=== PATIENT | male | born 1970 | race Caucasian/White ===

== ENCOUNTER 2021-03-15 10:41 | Emergency (ER) | payer OTHER, SELFPAY ==
[2021-03-15 10:42] VITALS: BP 134/74; PULSE 86; RESP 18; TEMP 36.7; O2SAT 98; BMI 19.6
--- NOTE | 2021-03-15 10:58 | PC.NURSE ---
spoke with pt advised him it would be awhile , he states bugs have layed eggs and are coming out his jawbone.
[2021-03-15 13:00] VITALS: BP 122/66; PULSE 72; RESP 20; TEMP 36.7; O2SAT 98
--- NOTE | 2021-03-15 13:01 | HMH.EDGENADL ---
ED Disposition Clinical Impression: Formication, Rash Disposition: Home, Self-Care Condition on Discharge: Good Instructions: Animal Bites Additional Instructions: Please follow up with your primary care physician outpatient for further management in 2-3 days. 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 Please use over the counter benadryl for itching and comfort. Please return to ED for any concerning symptoms such as difficulty breathing, white purulent drainage from rash, chest pain, difficulty breathing, fevers or any other concerning symptoms. Referrals: Provider,Referral, [Primary Care Provider] - Time of Disposition: 11:45 - Critical Care Critical Care Time: No Attestation: On 03/15/21, the high probability of a clinically significant, sudden or life threatening deterioration of the following system(s) required my full and direct attention, intervention and personal management. The time I documented below is in addition to time spent performing reported procedures but includes the following listed in this critical care notation. Medical Decision Making - Medical Records Medical records reviewed: Yes: I reviewed the patient's medical records. - Dimitris Inquiry Pt receiving controlled substance: No Dimitris was queried for this patient: No Risks and benefits of using a controlled substance: were discussed with pt by me Vital Signs: 03/15/21 10:42 03/15/21 13:00 Temperature 98.1 F 98.1 F Temperature Source Oral Pulse Rate 72 Pulse Rate [Left Radial] 86 Respiratory Rate 18 20 Blood Pressure 122/66 Blood Pressure [Right Arm] 134/74 Blood Pressure Mean [Right Arm] 94 Blood Pressure Source [Right Arm] Automatic Cuff Blood Pressure Position [Right Arm] Sitting 02 Sat by Pulse Oximetry 98 Oxygen Delivery Method Room Air Room Air - Lab Data Lab results reviewed: Yes: I reviewed the patient's lab results. Medical Decision Narrative: Mr. Fitzgerald is a 50-year-old male with a past medical history for polysubstance abuse who presents to the emergency department with a chief complaint of insects crawling all over his body. Patient is afebrile and hemodynamically stable on arrival. Physical exam remarkable for an anxious appearing male with abrasions all over the skin where he continues to pick at these lesions. No obvious signs of infections lesions appear chronic. Differentials to consider but not limited to include bug bites, other insect bites, formication. Patient has been seen by multiple other physicians for this chronic issue including a cement production plant operator and to primary care physicians. Wounds are investigated no obvious signs of parasites or insects are noted despite patient reporting that there are parasites within these wounds. Given patient's erratic behavior during exam and pressured speech concern for formication. Patient is informed to utilize Benadryl for itching and comfort. Patient is instructed to follow-up with his primary care physician in 2 to 3 days for further management. Patient is agreeable to plan and is discharged in stable condition. General Adult HPI - General Chief complaint: Animal Bite Stated complaint: insects in skin Time Seen by Provider: 03/15/21 10:45 Mode of Arrival: Ambulatory Source of Information: Patient Limitations: No Limitations - History of Present Illness HPI narrative: Mr. Fitzgerald is a 50-year-old male with pmh for polysubstance abuse who presents to the emergency department due to insects crawling in his skin. Patient reports symptoms have been going on for 1 month. He describes sensation as if insects are crawling all over his skin. Patient continues to report that there are parasites crawling within his mouth and extremities. During interview patient has rapid speech and thoughts. Patient reports he has been seen by cement production plant operator as well as 2 other primary care physicians for this complaint. [facility]
== END 2021-03-15 13:15 | disposition home or self-care (01) ==
PROVIDERS: Emergency Provider Student in an Organized Health Care Education/Training Program
DX: R20.2 Paresthesia of skin (principal); R21 Rash and other nonspecific skin eruption; F19.11 Other psychoactive substance abuse, in remission
CPT/HCPCS: 99281

== ENCOUNTER 2021-04-15 02:14 | Emergency (ER) | payer OTHER, SELFPAY ==
[2021-04-15 02:16] VITALS: BP 154/92; PULSE 84; RESP 17; TEMP 36.9; O2SAT 99; BMI 21.5
--- NOTE | 2021-04-15 02:47 | ECG_ITS ---
APPROVED REPORT Exam: Resting ECG HR:82 bpm ECG Measurements Heart Rate 82 AXES ME 140 P 65 QRSd 82 QRS 59 QT 366 T 66 QTc 427 Conclusion Normal sinus rhythm Normal ECG Electronically signed by : See Ivy MD 04/16/2021 21:41:32
--- NOTE | 2021-04-15 02:47 | XR_ITS ---
PROCEDURE INFORMATION: Exam: XR Chest Exam date and time: 04/15/2021 2:47 AM Age: 50 years old Clinical indication: Other: Palpations; Prior surgery; Surgery type: Sternum; Additional info: Palpitations TECHNIQUE: Imaging protocol: XR of the chest. Views: 2 views. COMPARISON: No relevant prior studies available. FINDINGS: Lungs: There are areas of scarring or calcified granulomatous change identified along the superior and lateral aspect of the right upper lobe. There is a 6 mm density identified along the medial aspect of the right upper lobe near the apex, likely representing a calcified granuloma. No consolidation. Pleural spaces: Unremarkable. No pleural effusion. No pneumothorax. Heart/Mediastinum: No cardiomegaly. Changes of prior mediastinal or sternal surgery. Bones/joints: Mild dextroconvex midthoracic scoliosis which may be positional in nature. IMPRESSION: No evidence of acute process within the chest.
--- NOTE | 2021-04-15 02:55 | HMH.EDARPALP ---
ED Disposition Clinical Impression: Palpitations Disposition: Home, Self-Care Condition on Discharge: Good Instructions: DI for Palpitations Additional Instructions: see pcp for follow up Referrals: Provider,Referral, [Primary Care Provider] - - Critical Care Critical Care Time: No Attestation: On 04/15/21, the high probability of a clinically significant, sudden or life threatening deterioration of the following system(s) required my full and direct attention, intervention and personal management. The time I documented below is in addition to time spent performing reported procedures but includes the following listed in this critical care notation. Medical Decision Making - Medical Records Medical records reviewed: Yes: I reviewed the patient's medical records. - Dimitris Inquiry Pt receiving controlled substance: No Vital Signs: 04/15/21 02:16 Temperature 98.5 F Temperature Source Oral Pulse Rate [Apical] 84 Respiratory Rate 17 Blood Pressure [Right Arm] 154/92 H Blood Pressure Mean [Right Arm] 112 Blood Pressure Source [Right Arm] Automatic Cuff Blood Pressure Position [Right Arm] Sitting 02 Sat by Pulse Oximetry 99 Oxygen Delivery Method Room Air - Lab Data Lab results reviewed: Yes: I reviewed the patient's lab results. Lab Results 04/15/21 02:34: WBC 6.6, RBC 4.59 L, Hgb 14.5, Hct 43.3, MCV 94.3 H, MCH 31.5 H, MCHC 33.4, RDW 13.9, Plt Count 235, MPV 8.1, Neut % (Auto) 37.7, Lymph % (Auto) 49.7, [place] % (Auto) 6.2, Eos % (Auto) 5.1, Baso % (Auto) 1.2, Neut # (Auto) 2.5, Lymph # (Auto) 3.3, [place] # (Auto) 0.4, Eos # (Auto) 0.3, Baso # (Auto) 0.1 04/15/21 02:34: Sodium 141, Potassium 3.3 L, Chloride 102, Carbon Dioxide 32 H, Anion Gap 10.3, BUN 9, Creatinine 0.90, Estimated Creat Clear 92, Estimated GFR 89, Est GFR ( Amer) 107, Glucose 97, Calcium 9.2 Result diagrams: 04/15/21 02:34 04/15/21 02:34 Orders (Tests/Meds): ED MEDICATIONS Generic Name Dose Route Start Last Admin Trade Name Cade PRN Reason Stop Dose Admin Sodium Chloride 1,000 mls @ 999 mls/hr 04/15/21 03:00 04/15/21 02:56 Sod Chlor 0.9% 1000ml Bag IV 04/15/21 04:00 999 mls/hr .Q1H1M JEFFREY Administration ORDERS Category Date Time Status Basic Metabolic Panel Stat Lab 04/15/21 02:34 Results T4 (Thyroxine) Stat Lab 04/15/21 02:34 Results TSH [Thyroid Stimulating Hormone] Stat Lab 04/15/21 02:34 Results Troponin I Q3H Lab 04/15/21 06:00 Ordered Troponin I Q3H Lab 04/15/21 09:00 Ordered Troponin I Stat Lab 04/15/21 02:34 Results UDS [Drug Screen,Urine] Stat Lab 04/15/21 02:47 Ordered Urinalysis and Microscopic Stat Lab 04/15/21 02:47 Ordered - Radiology Data #1 Image(s): Chest Image Reviewed: Yes I have reviewed radiologist's interpretation Preliminary Findings: Abnormal - ECG Data Tracing #1 Normal Sinus Rhythm: Yes Ischemic changes: non-specific ST-T wave changes Medical Decision Narrative: stable labs and exam - will need to see pcp for follow up Arrhythmia/Palpitations HPI - General Chief Complaint: Arrhythmia/Palpitations Stated Complaint: fast HR,COPD,SOA Time Seen by Provider: 04/15/21 02:40 Mode of Arrival: Ambulatory Source of Information: Patient, Medical Record Limitations: No Limitations - History of Present Illness HPI narrative: pt with episodes of fast hr over the last few weeks - also c/o of possible bugs on skin - has seen pcp for this in past - had recent visit to [facility] for same also MD complaint: palpitations Onset (ago): day(s) Duration: intermittent Severity: mild Context: occurred during rest Associated symptoms: denies other symptoms - Related Data Allergies Allergy/AdvReac Type Severity Reaction Status Date / Time No Known Allergies Allergy Verified 03/15/21 13:39 [facility] History - Hepatitis A Screen Drug use history?: No High risk sexual behaviors?: No History of sexually transmitted infection?: No Currently employed
[2021-04-15 03:06] LABS: Chloride 102 mmol/L (98-107); Potassium 3.3 mmoL/L (3.5-5.1); Sodium 141 mmol/L (136-145)
[2021-04-15 03:09] LABS: Anion Gap 10.3 mEq/L (5-15); Blood Urea Nitrogen 9 mg/dl (9-20); Calcium 9.2 mg/dl (8.4-10.2); Carbon Dioxide 32 mmol/L (22.0-30.0); Creatinine Clearance Estimated 92 mL/min (50-200); Estimated Glomerular Filt Rate 89 ml/min (>60); GFR (African American) 107 ML/MIN (>60); Glucose 97 mg/dl (74-100)
[2021-04-15 03:10] LABS: Basophils # 0.1 K/mm3 (0-0.2); Basophils % 1.2 % (0.1-2.0); Eosinophils # 0.3 K/mm3 (0.0-0.4); Eosinophils % 5.1 % (0.1-12.0); Hematocrit 43.3 % (42.0-52.0); Hemoglobin 14.5 g/dL (14.1-18.0); Lymphocytes # 3.3 K/mm3 (0.7-4.5); Lymphocytes % 49.7 % (10-50); Mean Corpuscular HGB Conc 33.4 g/dL (31.8-35.4); Mean Corpuscular Hemoglobin 31.5 pg (27.0-31.2); Mean Corpuscular Volume 94.3 fl (80-94); Mean Platelet Volume 8.1 fl (7.4-10.4); Monocytes # 0.4 K/mm3 (0.1-1.0); Monocytes % 6.2 % (1.7-9.3); Neutrophils # 2.5 K/mm3 (1.8-7.8); Neutrophils % 37.7 % (37.0-80.0); Platelet Count 235 K/mm3 (142-424); Red Blood Count 4.59 M/mm3 (4.60-6.20); Red Cell Distribution Width 13.9 % (11.5-17.5); White Blood Count 6.6 K/mm3 (4.8-10.8)
[2021-04-15 03:24] VITALS: BP 135/94; PULSE 65; RESP 14; O2SAT 100
[2021-04-15 03:27] LABS: T4 (Thyroxine) 10.5 ug/dl (5.53-11.0)
[2021-04-15 03:30] VITALS: BP 160/89; PULSE 72; RESP 14; O2SAT 97
[2021-04-15 03:39] VITALS: BP 158/85; PULSE 72; RESP 14; TEMP 36.6; O2SAT 99
[2021-04-15 03:40] LABS: Thyroid Stimulating Hormone 1.95 uIU/mL (0.465-4.68)
[2021-04-15 03:46] LABS: Troponin I < 0.01 ng/ml (0.00-0.034)
[2021-04-15 03:57] LABS: Microscopic, Urine URINE MICROSCOPIC (MICROSCOPIC)
[2021-04-15 04:00] LABS: Appearance,Urine CLEAR (Clear); Bilirubin,Urine Negative (Negative); Blood, Urine TRACE-I (Negative); Color,Urine YELLOW (Yellow); Glucose,Urine (UA) Negative (Negative); Ketones,Urine Negative (Negative); Leukocyte Esterase,Urine 1+ (Negative); Nitrate,Urine Negative (Negative); Protein,Urine Negative (Negative); Urobilinogen,Urine 0.2 EU/dl (0.2)
[2021-04-15 04:11] LABS: Amphetamine/Metha Screen,Urine Negative ng/ml (<1000); Barbiturates Screen,Urine Negative ng/ml (<200)
[2021-04-15 04:12] LABS: Benzodiazepines Screen,Urine Negative ng/ml (<200); Cannabinoid Screen,Urine Negative ng/ml (<50)
[2021-04-15 04:13] LABS: Cocaine Screen,Urine Negative ng/ml (<300)
[2021-04-15 04:14] LABS: Methadone Screen,Urine Negative ng/ml (<300); Opiate Screen,Urine Negative ng/ml (<300)
[2021-04-15 04:15] LABS: Phencyclidine Screen,Urine Negative ng/ml (<25)
[2021-04-15 04:27] LABS: Bacteria,Urine 1+ /lpf
== END 2021-04-15 03:47 | disposition home or self-care (01) ==
PROVIDERS: Emergency Provider Emergency Medicine
DX: R00.2 Palpitations (principal); R20.2 Paresthesia of skin; J44.9 Chronic obstructive pulmonary disease, unspecified
CPT/HCPCS: 71046; 80048; 80305; 81001; 84436; 84443; 84484; 85025; 87086; 93005; 96365; 99283